=== PATIENT | female | born 1990 | race Caucasian/White ===

== ENCOUNTER → 2023-03-24 14:54 | Outpatient (REF) | payer OTHER, SELFPAY | LOC: PNTC 14:54 | PROVIDERS: ATTENDING PHYSICIAN Obstetrics & Gynecology | DX: Z36.0 Encounter for antenatal screening for chromosomal anomalies (principal); Z36.82 Encounter for antenatal screening for nuchal translucency | CPT/HCPCS: 36415; 76801; 76802; 76813; 76814 ==

== ENCOUNTER → 2023-04-17 15:02 | Outpatient (REF) | payer OTHER, SELFPAY | LOC: PNTC 15:02 | PROVIDERS: ATTENDING PHYSICIAN Obstetrics & Gynecology | DX: O99.210 Obesity complicating pregnancy, unspecified trimester (principal) | CPT/HCPCS: 76805; 76810 ==

== ENCOUNTER → 2023-05-12 15:24 | Outpatient (REF) | payer OTHER, SELFPAY | LOC: PNTC 15:24 | PROVIDERS: ATTENDING PHYSICIAN Obstetrics & Gynecology | DX: O99.210 Obesity complicating pregnancy, unspecified trimester (principal) | CPT/HCPCS: 76811; 76812 ==

== ENCOUNTER → 2023-06-23 17:06 | Outpatient (REF) | payer BC, SELFPAY | LOC: PNTC 17:06 | PROVIDERS: ATTENDING PHYSICIAN Obstetrics & Gynecology | DX: O99.210 Obesity complicating pregnancy, unspecified trimester (principal) | CPT/HCPCS: 76816 ==

== ENCOUNTER → 2023-07-21 08:45 | Outpatient (REF) | payer BC, SELFPAY | LOC: REG 08:45 | PROVIDERS: ATTENDING PHYSICIAN Obstetrics & Gynecology | DX: Z34.03 Encounter for supervision of normal first pregnancy, third trimester (principal) | CPT/HCPCS: 36415; 86850; 86900; 86901; J2790 ==

== ENCOUNTER → 2023-08-04 15:42 | Outpatient (REF) | payer BC, SELFPAY | LOC: PNTC 15:42 | PROVIDERS: ATTENDING PHYSICIAN Obstetrics & Gynecology | DX: O99.210 Obesity complicating pregnancy, unspecified trimester (principal); O30.049 Twin pregnancy, dichorionic/diamniotic, unspecified trimester | CPT/HCPCS: 59025; 76801; 76802 ==

== ENCOUNTER → 2023-08-11 14:52 | Outpatient (REF) | payer BC, SELFPAY | LOC: PNTC 14:52 | PROVIDERS: ATTENDING PHYSICIAN Obstetrics & Gynecology | DX: O30.049 Twin pregnancy, dichorionic/diamniotic, unspecified trimester (principal); O99.210 Obesity complicating pregnancy, unspecified trimester | CPT/HCPCS: 76815 ==

== ENCOUNTER → 2023-08-18 15:36 | Outpatient (REF) | payer BC, SELFPAY | LOC: PNTC 15:36 | PROVIDERS: ATTENDING PHYSICIAN Obstetrics & Gynecology | DX: O99.210 Obesity complicating pregnancy, unspecified trimester (principal); O30.049 Twin pregnancy, dichorionic/diamniotic, unspecified trimester | CPT/HCPCS: 59025 ==

== ENCOUNTER 2023-08-22 16:58 | Observation (INO) | payer BC, SELFPAY ==
[2023-08-22 17:02] VITALS: BP 130/92; BMI 34.2
[2023-08-22 17:20] LABS: Hematocrit 30.8 % (37.0-47.0); Hemoglobin 10.2 g/dL (12.0-16.0); Mean Corp Hgb Conc. 33.1 g/dL (33.0-37.0); Mean Corpuscular Hgb 28.3 pg (27.0-31.0); Mean Corpuscular Volume 85.3 fL (81.0-99.0); Mean Platelet Volume 11.9 fL (7.4-10.4); Platelet Count 325 10^3/uL (130-400); Red Blood Cell Count 3.61 10^6/uL (4.20-5.40); Red Cell Dist. Width 13.4 % (11.5-14.5); White Blood Cell Count 10.5 10^3/uL (4.8-10.8)
[2023-08-22 17:34] LABS: ALT (SGPT) 15 U/L (0-35); AST (SGOT) 25 U/L (14-36); Albumin 3.7 g/dl (3.5-5.0); Alkaline Phosphatase 266 U/L (38-126); Blood Urea Nitrogen 6 mg/dl (7-17); Calcium 9.6 mg/dl (8.4-10.2); Carbon Dioxide 22 mmol/L (22-30); Chloride 104 mmol/L (98-107); Estimated Creatinine Clearance > 125 ml/min; Glucose 78 mg/dl (70-99); Potassium 4.6 mmol/L (3.5-5.1); Sodium 133 mmol/L (135-145); Total Bilirubin 0.3 mg/dl (0.2-1.3); Total Protein 6.6 g/dl (6.3-8.2); eGFR > 60.00
[2023-08-22 18:06] LABS: Urine Albumin Trace (Neg - Trace); Urine Bilirubin Negative (Negative); Urine Character Clear (Clear); Urine Color Yellow; Urine Glucose Negative (Negative); Urine Ketone Negative (Negative); Urine Leukocyte Negative (Negative); Urine Nitrite Negative (Negative); Urine Occult Blood Negative (Negative); Urine Urobilinogen Negative (Neg - 1+)
[2023-08-22 18:21] LABS: Protein/creatinine Ratio 1.1; Urine Protein 28 mg/dl
== END 2023-08-22 18:40 | disposition home or self-care (01) ==
LOC: LDRP 16:58
PROVIDERS: Obstetrics & Gynecology; ADMITTING PHYSICIAN Obstetrics & Gynecology
DX: O36.8130 Decreased fetal movements, third trimester, not applicable or unspecified (principal); Z3A.35 35 weeks gestation of pregnancy; K59.00 Constipation, unspecified
CPT/HCPCS: 80053; 81003; 82570; 84156; 85027; G0378

== ENCOUNTER → 2023-08-25 15:37 | Outpatient (REF) | payer BC, SELFPAY | LOC: PNTC 15:37 | PROVIDERS: ATTENDING PHYSICIAN Obstetrics & Gynecology | DX: O99.210 Obesity complicating pregnancy, unspecified trimester (principal); O30.049 Twin pregnancy, dichorionic/diamniotic, unspecified trimester | CPT/HCPCS: 59025; 76815 ==

== ENCOUNTER → 2023-09-01 15:55 | Outpatient (REF) | payer BC, SELFPAY | LOC: PNTC 15:55 | PROVIDERS: ATTENDING PHYSICIAN Obstetrics & Gynecology | DX: O99.210 Obesity complicating pregnancy, unspecified trimester (principal); O30.049 Twin pregnancy, dichorionic/diamniotic, unspecified trimester | CPT/HCPCS: 59025; 76816; 86850; 86870; 86900; 86901 ==

== ENCOUNTER → 2023-09-08 15:54 | Outpatient (REF) | payer BC, SELFPAY | LOC: PNTC 15:54 | PROVIDERS: ATTENDING PHYSICIAN Obstetrics & Gynecology | DX: O30.049 Twin pregnancy, dichorionic/diamniotic, unspecified trimester (principal); O99.210 Obesity complicating pregnancy, unspecified trimester | CPT/HCPCS: 59025 ==

== ENCOUNTER 2023-09-16 04:55 | Observation (INO) | payer BC, SELFPAY ==
[2023-09-16 05:23] VITALS: BP 124/87; BMI 35.0
== END 2023-09-16 07:15 | disposition home or self-care (01) ==
LOC: LDRP 04:55
PROVIDERS: ADMITTING PHYSICIAN Obstetrics & Gynecology; FAMILY PHYSICIAN Family Medicine
DX: R10.32 Left lower quadrant pain (principal); R10.11 Right upper quadrant pain; O47.1 False labor at or after 37 completed weeks of gestation; Z3A.38 38 weeks gestation of pregnancy
CPT/HCPCS: 36415; 59025; 76815; G0378

== ENCOUNTER 2023-09-18 05:39 | Inpatient (IN) | payer BC, SELFPAY ==
[2023-09-18 05:53] VITALS: BMI 34.9
[2023-09-18 05:54] VITALS: BP 116/70
[2023-09-18 06:04] LABS: Hematocrit 28.5 % (37.0-47.0); Hemoglobin 9.4 g/dL (12.0-16.0); Mean Corpuscular Hgb 26.3 pg (27.0-31.0); Mean Corpuscular Volume 79.6 fL (81.0-99.0); Mean Platelet Volume 11.9 fL (7.4-10.4); Platelet Count 378 10^3/uL (130-400); Red Blood Cell Count 3.58 10^6/uL (4.20-5.40); Red Cell Dist. Width 14.9 % (11.5-14.5); White Blood Cell Count 11.1 10^3/uL (4.8-10.8)
[2023-09-18] MEDS: TYLENOL 1000 MG PO (07:04)
[2023-09-18] MEDS: LR 1000 IV (07:06)
[2023-09-18] MEDS: BICITRA 30 ML PO (07:23)
[2023-09-18] MEDS: ANCEF 10 IV (07:23)
[2023-09-18] MEDS: TORADOL 15 MG IV ×3 (11:02→23:36)
[2023-09-18] MEDS: REGLAN 10 MG IV (16:00)
[2023-09-19] VITALS (7 sets, daily range): BP systolic 102–139; BP diastolic 65–75
[2023-09-19 05:45] LABS: Hematocrit 22.1 % (37.0-47.0); Hemoglobin 7.2 g/dL (12.0-16.0); Mean Corp Hgb Conc. 32.6 g/dL (33.0-37.0); Mean Corpuscular Hgb 27.1 pg (27.0-31.0); Mean Corpuscular Volume 83.1 fL (81.0-99.0); Mean Platelet Volume 12.1 fL (7.4-10.4); Platelet Count 289 10^3/uL (130-400); Red Blood Cell Count 2.66 10^6/uL (4.20-5.40); Red Cell Dist. Width 14.9 % (11.5-14.5); White Blood Cell Count 13.7 10^3/uL (4.8-10.8)
[2023-09-19] MEDS: TORADOL IV (06:30)
--- NOTE | 2023-09-19 07:56 | W.PN.ANS.POP ---
Anesthesia Post Operative
- Anesthesia Post Op Note
Vital Signs Stable-See Nursing Note: Yes
Airway Patent: Yes
Adequate Pain Control: Yes
Change in Mental Status: No
Current Postoperative Nausea & Vomiting: No
Anesthesia Complications: No
General Anesthetic Recall: No
Unplanned Admission: No
Post Op Hydration Adequate: Yes
[2023-09-19] MEDS: PRENATAL PLUS 1 TABLET PO (08:32)
[2023-09-19] MEDS: TUMS 2 TABLET PO ×2 (08:32→20:17)
[2023-09-19] MEDS: FEOSOL 325 MG PO ×2 (08:32→20:19)
[2023-09-19] MEDS: MOTRIN 600 MG PO ×2 (10:30→20:18)
[2023-09-19] MEDS: TYLENOL 650 MG PO ×2 (10:30→20:18)
[2023-09-19 14:47] LABS: Syphilis/T. pallidum Ab Reflex Negative (Negative)
[2023-09-19] MEDS: SENOKOT-S 1 TABLET PO (20:18)
[2023-09-20] MEDS: MOTRIN 600 MG PO ×4 (04:26→22:24)
[2023-09-20] MEDS: TYLENOL 650 MG PO ×4 (04:26→22:24)
[2023-09-20] MEDS: PRENATAL PLUS 1 TABLET PO (09:23)
[2023-09-20] MEDS: FEOSOL 325 MG PO ×2 (09:23→22:24)
[2023-09-20] MEDS: MYLICON 80 MG PO (12:55)
[2023-09-20] MEDS: SENOKOT-S 1 TABLET PO (12:55)
[2023-09-20] MEDS: TUMS 2 TABLET PO (16:20)
[2023-09-21] MEDS: TYLENOL 650 MG PO ×3 (04:25→20:55)
[2023-09-21] MEDS: MOTRIN 600 MG PO ×3 (04:25→20:55)
[2023-09-21 06:41] LABS: Hematocrit 24.3 % (37.0-47.0); Mean Corp Hgb Conc. 32.9 g/dL (33.0-37.0); Mean Corpuscular Hgb 27.4 pg (27.0-31.0); Mean Corpuscular Volume 83.2 fL (81.0-99.0); Mean Platelet Volume 10.5 fL (7.4-10.4); Platelet Count 368 10^3/uL (130-400); Red Blood Cell Count 2.92 10^6/uL (4.20-5.40); Red Cell Dist. Width 15.5 % (11.5-14.5); White Blood Cell Count 10.2 10^3/uL (4.8-10.8)
[2023-09-21] MEDS: FEOSOL 325 MG PO (07:57)
[2023-09-21] MEDS: PRENATAL PLUS 1 TABLET PO (07:57)
--- NOTE | 2023-09-21 08:39 | W.DS.TRANS ---
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
-
Discharge Instructions:
Discharge Diagnosis/Procedures section
Instructions:
Stand-Alone Forms: LDRP Delivery
Changes to Home Medications: No
Discharge Medications:
DC Medications w/original date entered in [employer]
aspirin 81 mg tablet 81 mg PO DAILY Blood Clot Prevention/Tx 08/22/23
polyethylene glycol 3350 17 gram oral powder packet (Miralax) 17 g PO DAILY Constipation 08/22/23
prenat.vits,johnnie,gjz-jwam-qqzby 1 tab PO DAILY Supplement 08/22/23
sennosides 8.6 mg tablet (Senokot) 8.6 mg PO DAILY Constipation 08/22/23
acetaminophen 325 mg tablet 650 mg (2 x 325 mg) PO Q4HPRN PRN mild pain #0 tabs 09/20/23
ferrous sulfate 325 mg (65 mg iron) tablet (FeroSul) 325 mg PO BID #0 tabs 09/20/23
ibuprofen 600 mg tablet 600 mg PO Q6HPRN PRN pain or cramps #40 tabs 09/20/23
sennosides 8.6 mg-docusate sodium 50 mg tablet 1 tab PO DAILYPRN PRN constipation #0 tabs 09/20/23
simethicone 80 mg chewable tablet 80 mg PO TIDPRN PRN flatulence #0 tabs 09/20/23
Home Medication Changes
Pending Results: Yes
Additional Pending Results:
Placenta pathology
Total time spent discharging patient (in min): 20
[2023-09-21] MEDS: SENOKOT-S 1 TABLET PO (11:33)
[2023-09-21] MEDS: MYLICON 80 MG PO (14:43)
[2023-09-21] MEDS: FEOSOL PO (20:05)
[2023-09-22] MEDS: MYLICON 80 MG PO ×2 (00:55→09:11)
[2023-09-22] MEDS: MOTRIN 600 MG PO ×2 (04:27→10:43)
[2023-09-22] MEDS: TYLENOL 650 MG PO ×2 (04:28→10:43)
[2023-09-22] MEDS: SENOKOT-S 1 TABLET PO (09:11)
[2023-09-22] MEDS: PRENATAL PLUS 1 TABLET PO (09:11)
[2023-09-22] MEDS: FEOSOL PO (09:12)
== END 2023-09-22 14:08 | disposition home or self-care (01) | DRG 788 ==
LOC: LDRP 05:39
PROVIDERS: Obstetrics & Gynecology; ADMITTING PHYSICIAN Obstetrics & Gynecology
PROC: 10D00Z1 Extraction of Products of Conception, Low, Open Approach (ICD-10-PCS; 2023-09-18)
DX: O30.043 Twin pregnancy, dichorionic/diamniotic, third trimester (principal); O32.0XX2 Maternal care for unstable lie, fetus 2; Z3A.38 38 weeks gestation of pregnancy; Z37.2 Twins, both liveborn; O26.893 Other specified pregnancy related conditions, third trimester; Z67.11 Type A blood, Rh negative; D50.0 Iron deficiency anemia secondary to blood loss (chronic); O90.81 Anemia of the puerperium
CPT/HCPCS: 88307; 85027; 86780; 86850; 86900; 86901; 86920; P9016

== ENCOUNTER 2024-01-25 21:28 | Emergency (ER) | payer BC, SELFPAY ==
[2024-01-25 21:31] VITALS: BP 131/82
[2024-01-25 22:02] LABS: HCG, Serum Qualitative Screen Negative
[2024-01-25 22:04] LABS: % Basophils 0.5 % (0-2); % Eosinophils 1.8 % (0-6); % Immature Granulocytes 0.2 % (0-0.5); % Lymphocytes 31.4 % (20.5-51.1); % Monocytes 7.5 % (1.7-9.3); % Neutrophils 58.6 % (42.2-75.2); Absolute Eosinophils 0.1 10^3/uL (0-0.7); Absolute Lymphocytes 2.1 10^3/uL (1.2-3.4); Absolute Monocytes 0.5 10^3/uL (0.1-0.6); Absolute Neutrophils 3.9 10^3/uL (1.4-6.5); Hematocrit 36.9 % (37.0-47.0); Mean Corp Hgb Conc. 32.5 g/dL (33.0-37.0); Mean Corpuscular Hgb 28.6 pg (27.0-31.0); Mean Corpuscular Volume 88.1 fL (81.0-99.0); Mean Platelet Volume 10.7 fL (7.4-10.4); Nucleated Red Blood Cells % 0 %; Platelet Count 339 10^3/uL (130-400); Red Blood Cell Count 4.19 10^6/uL (4.20-5.40); Red Cell Dist. Width 13.2 % (11.5-14.5); White Blood Cell Count 6.6 10^3/uL (4.8-10.8)
[2024-01-25 22:05] LABS: ALT (SGPT) 30 U/L (0-35); AST (SGOT) 25 U/L (14-36); Albumin 4.7 g/dl (3.5-5.0); Alkaline Phosphatase 87 U/L (38-126); Blood Urea Nitrogen 11 mg/dl (7-17); Calcium 9.6 mg/dl (8.4-10.2); Carbon Dioxide 29 mmol/L (22-30); Chloride 101 mmol/L (98-107); Glucose 111 mg/dl (70-99); Lipase 105 U/L (23-300); Potassium 3.8 mmol/L (3.5-5.1); Sodium 139 mmol/L (135-145); Total Bilirubin 0.3 mg/dl (0.2-1.3); Total Protein 7.5 g/dl (6.3-8.2); eGFR > 60.00
[2024-01-25 22:15] VITALS: BP 130/77
--- NOTE | 2024-01-25 22:20 | ED.GENMED ---
History of Present Illness
<STUART Santacruz - Last Filed: 01/25/24 22:32>
General
Chief Complaint: Abdominal Pain
Source: patient
Time Seen by Provider: 01/25/24 22:06
Nursing documentation reviewed up to this point in time: agreed with
History of Present Illness
History of Present Illness:
Pt is a 33 yo F who presents with epigastric abdominal pain that began after dinner tonight. Pt states that the pain is located in the epigastric abdominal region and that it radiates to her back. She describes it as sharp and 9/10. She states that
she has had this pain previously and that it has never been this bad before. She states the last time she had this pain was on Friday. She states that she took 2 Tums at home and denies taking OTC pain medication. Pt admits to having N/V/D. Pt
states that she vomited after the pain started at home and that she vomited all of her dinner and in the waiting room of the ED vomited bile. Pt denies fever, chills, shortness of breath, headache, bloating.
Pt reports that she is 4 months post- from having twins via . She reports that she had to receive blood after the .
Review of Systems
<STUART Santacruz - Last Filed: 01/25/24 22:32>
Review of Systems
Allergies reviewed?: Yes
Constitutional: Reports no symptoms
EENT: Reports no symptoms
Respiratory: Reports no symptoms
Cardiac: Reports no symptoms
ABD/GI: Reports abdominal pain, nausea, vomiting and diarrhea
: Reports no symptoms
Skin: Reports no symptoms
Neurological: Reports no symptoms
Phy Exam
<STUART Santacruz - Last Filed: 01/25/24 22:32>
General Physical Exam
General Presentation: severe distress
General age: appears stated age
General Skin: warm
General Habitus: normal
General Mental: alert
General Hydration: appears well hydrated
Cardiovascular Exam
Cardiovascular Exam: regular rate/rhythm
Pulmonary Exam
Pulmonary Exam: lungs clear
Gastrointestinal Exam
Gastrointestinal Exam: normal bowel sounds, soft and non distended
Palpation: right upper quadrant: Moderate tenderness and generalized: Severe tenderness (epigastric region)
Course
<STUART Santacruz - Last Filed: 01/25/24 22:32>
Orders/Labs/Results
Orders:
Orders
01/25/24 21:29
EKG [Electrocardiogram (*1)] Stat
Reason for Study: Chest Pain
01/25/24 21:30
EKG- Treatment ONCE
01/25/24 21:36
Test Result ONCE
01/25/24 21:44
Complete Blood Count/With Diff Urgent
Comprehensive Metabolic Panel Urgent
HCG, Serum Qualitative Screen Urgent
Lipase Urgent
01/25/24 22:22
US Abdomen Complete/Upper Urgent
Comment:
Reason For Exam: epigastric/RUQ pain
01/25/24 22:41
Morphine Sulfate 4 mg IV NOW STA
Ondansetron Injectable [Zofran] 4 mg IV NOW STA
01/26/24 00:40
Ketorolac [Toradol] 15 mg IV NOW STA
Abnormal Lab Results
01/25/24
21:44
RBC 4.19 L 10^6/uL
(4.20-5.40)
Hct 36.9 L %
(37.0-47.0)
MCHC 32.5 L g/dL
(33.0-37.0)
MPV 10.7 H fL
(7.4-10.4)
Glucose 111 H mg/dl
(70-99)
01/25/24 21:44
01/25/24 21:44
Vital Signs
Initial and Last Documented VS:
Initial Vital Signs
Temp Pulse Resp BP Pulse Ox
97.4 F 78 18 131/82 98
01/25/24 21:31 01/25/24 21:31 01/25/24 21:31 01/25/24 21:31 01/25/24 21:31
Last Documented Vital Signs
Temp Pulse Resp BP Pulse Ox
97.4 F 67 18 118/78 97
01/25/24 21:31 01/25/24 22:15 01/25/24 21:31 01/26/24 00:10 01/26/24 00:15
<Alex Herndon, DO - Last Filed: 01/26/24 01:25>
Orders/Labs/Results
Orders:
Orders
01/25/24 21:29
EKG [Electrocardiogram (*1)] Stat
Reason for Study: Chest Pain
01/25/24 21:30
EKG- Treatment ONCE
01/25/24 21:36
Test Result ONCE
01/25/24 21:44
Complete Blood Count/With Diff Urgent
Comprehensive Metabolic Panel Urgent
HCG, Serum Qualitative Screen Urgent
Lipase Urgent
01/25/24 22:22
US Abdomen Complete/Upper Urgent
Comment:
Reason For Exam: epigastric/RUQ pain
01/25/24 22:41
Morphine Sulfate 4 mg IV NOW STA
Ondansetron Injectable [Zofran] 4 mg IV NOW STA
01/26/24 00:40
Ketorolac [Toradol] 15 mg IV NOW STA
Abnormal Lab Results
01/25/24
21:44
RBC 4.19 L 10^6/uL
(4.20-5.40)
Hct 36.9 L %
(37.0-47.0)
MCHC 32.5 L g/dL
(33.0-37.0)
MPV 10.7 H fL
(7.4-10.4)
Glucose 111 H mg/dl
(70-99)
01/25/24 21:44
01/25/24 21:44
Vital Signs
Initial and Last Documented VS:
Initial Vital Signs
Temp Pulse Resp BP Pulse Ox
97.4 F 78 18 131/82 98
01/25/24 21:31 01/25/24 21:31 01/25/24 21:31 01/25/24 21:31 01/25/24 21:31
Last Documented Vital Signs
Temp Pulse Resp BP Pulse Ox
97.4 F 67 18 118/78 97
01/25/24 21:31 01/25/24 22:15 01/25/24 21:31 01/26/24 00:10 01/26/24 00:15
<STUART Santacruz - Last Filed: 01/25/24 22:32>
MDM/Problems Addressed
Differential Diagnosis Includes:
Cholecystitis, cholelithiasis, acute pancreatitis
<STUART Santacruz - Last Filed: 01/25/24 22:32>
*Critical Care Note
Total Time (30-74mins, 75-104mins- exclusive of procedures): Not Applicable
<Alex Herndon DO - Last Filed: 01/26/24 01:25>
Update Note
Update Note:
Patient still complaining of some pain. I did offer her admission to the hospital but at this point she is refusing. She wishes to be discharged home.
ED Attending Note
<STUART Santacruz - Last Filed: 01/25/24 22:32>
-
Portions of this chart may have been created with voice recognition software.� Occasional wrong word or��sound alike� substitutions may have occurred due to the inherent limitations of voice recognition software.
<Alex Herndon, DO - Last Filed: 01/26/24 01:25>
ED Attending Note
Patient seen and examined by attending physician: Yes
I performed the substantive portion of visit, reviewed & personally made and approve the management plan that is documented in note by myself or BRANDI.: Yes
ED Attending Note:
Pleasant 33-year-old female that presents with right upper quadrant abdominal pain. She states that the pain began after eating dinner tonight. It is accompanied by nausea. She reports it radiates to her right back. At home she took 2 Tums
without much relief. Patient states that the nausea and vomiting has been increasing steadily. Patient denies fever, chills, chest pain, or shortness of breath. Patient states that
Discharge Plan
Departure
Patient Disposition: Home (Routine Discharge)
Date of Disposition: 01/26/24
Time of Disposition: 01:22
Patient with high blood pressure during this ER visit?: Yes
Condition: Good
Discharge Problem:
Biliary colic
Instructions: Gallstones (DC), Abdominal Pain
Prescriptions:
New
diclofenac sodium 75 mg tablet,delayed release (DR/EC)
75 mg PO BID Qty: 10 0RF
No Action
sennosides [Senokot] 8.6 mg Tablet
8.6 mg PO DAILY
polyethylene glycol 3350 [Miralax] 17 gram Powder In Packet
17 g PO DAILY
aspirin 81 mg Tablet
81 mg PO DAILY
prenat.vits,johnnie,tjj-iupj-eddlw Tablet
1 tab PO DAILY
acetaminophen 325 mg Tablet
650 mg PO Q4HPRN PRN (Reason: mild pain) Qty: 0 0RF
sennosides-docusate sodium 8.6-50 mg Tablet
1 tab PO DAILYPRN PRN (Reason: constipation) Qty: 0 0RF
ferrous sulfate [FeroSul] 325 mg (65 mg iron) Tablet
325 mg PO BID Qty: 0 0RF
ibuprofen 600 mg Tablet
600 mg PO Q6HPRN PRN (Reason: pain or cramps) Qty: 40 0RF
simethicone 80 mg Tablet,Chewable
80 mg PO TIDPRN PRN (Reason: flatulence) Qty: 0 0RF
Referrals:
Odette Zimmerman MD [Family Provider] -
Alex Krueger MD [Active] - Call in 1-3 days for appt
Activity Restrictions/Additional Instructions:
Please continue to take Tylenol as directed. Diclofenac has been prescribed which is similar to ibuprofen so please do not take any other NSAIDs such as ibuprofen, Motrin, Aleve etc. with the diclofenac.
It was a pleasure meeting you and taking part in your care. We hope for your continued healing and wellness.
Please read discharge instructions in their entirety. However, they are for general education and may not describe your exact diagnosis at discharge. Information on your ER visit and medical conditions were discussed with you along with appropriate
follow up information...
If indicated, please take your medications as instructed and indicated on discharge paperwork.
Please schedule a follow up appointment as directed. Call to schedule an appointment
Please return to the emergency department with ANY change in, persisting, or worsening of symptoms. If any of your symptoms do not improve, or persist, or become more severe within 6-12 hours, please return to the emergency department for further
care.
Please return to the emergency department if you develop a headache, neck pain/stiffness, fever greater than 100.4F, chest pain, shortness of breath, persistent nausea, vomiting, slurred speech, difficulty walking, numbness/tingling, weakness, signs
of infection or any other symptoms that are worrisome to you.
If you have any questions or concerns please do not hesitate to call the Hospital at or E-mail me directly at [email or web address]
Interventions
Interventions:
*Risk Screen - Suicide Last Done: 01/25/24 21:31
*General Assessment Last Done: 01/25/24 21:31
*Neglect/Abuse Screening Last Done: 01/25/24 21:31
ED- Fall Risk Assessment Last Done: 01/25/24 22:27
[facility] Assessment Last Done: 01/25/24 22:27
Discharge Date and Time
Print Language: [id number]
[2024-01-25] MEDS: ZOFRAN 4 MG IV (22:46)
[2024-01-25] MEDS: MORPHINE SULFATE 4 MG IV (22:46)
[2024-01-25 23:00] VITALS: BP 121/76
[2024-01-26 00:10] VITALS: BP 118/78
[2024-01-26] MEDS: TORADOL 15 MG IV (00:47)
[2024-01-26 01:00] VITALS: BP 138/75
== END 2024-01-26 01:46 | disposition home or self-care (01) ==
LOC: EMR 21:28
PROVIDERS: Student in an Organized Health Care Education/Training Program; EMERGENCY PHYSICIAN Student in an Organized Health Care Education/Training Program; FAMILY PHYSICIAN Family Medicine
DX: K80.70 Calculus of gallbladder and bile duct without cholecystitis without obstruction (principal)
CPT/HCPCS: 96374; 96375; 99284; 76700; 80053; 83690; 84703; 85025; 93005

== ENCOUNTER 2024-02-07 19:09 | Day surgery (SDC) | payer BC, SELFPAY ==
[2024-02-07] VITALS (13 sets, daily range): BP systolic 108–130; BP diastolic 63–84; BMI 30.8; BMI 30.6
[2024-02-07 11:19] LABS: Urine Albumin Trace (Neg - Trace); Urine Bilirubin Negative (Negative); Urine Character Clear (Clear); Urine Color Yellow; Urine Glucose Negative (Negative); Urine Ketone Negative (Negative); Urine Leukocyte Trace (Negative); Urine Nitrite Negative (Negative); Urine Occult Blood Negative (Negative); Urine Urobilinogen Negative (Neg - 1+)
[2024-02-07 11:22] LABS: % Basophils 0.4 % (0-2); % Eosinophils 0.4 % (0-6); % Immature Granulocytes 0.4 % (0-0.5); % Lymphocytes 15.7 % (20.5-51.1); % Monocytes 4.5 % (1.7-9.3); % Neutrophils 78.6 % (42.2-75.2); Absolute Lymphocytes 1.5 10^3/uL (1.2-3.4); Absolute Monocytes 0.4 10^3/uL (0.1-0.6); Absolute Neutrophils 7.6 10^3/uL (1.4-6.5); Hematocrit 36.9 % (37.0-47.0); Hemoglobin 12.4 g/dL (12.0-16.0); Mean Corp Hgb Conc. 33.6 g/dL (33.0-37.0); Mean Corpuscular Hgb 29.2 pg (27.0-31.0); Mean Platelet Volume 10.5 fL (7.4-10.4); Nucleated Red Blood Cells % 0 %; Platelet Count 318 10^3/uL (130-400); Red Blood Cell Count 4.24 10^6/uL (4.20-5.40); Red Cell Dist. Width 13.5 % (11.5-14.5); White Blood Cell Count 9.7 10^3/uL (4.8-10.8)
[2024-02-07] MEDS: ZOFRAN 4 MG IV ×2 (11:26→20:09)
[2024-02-07] MEDS: NSS 1000 IV ×2 (11:29→19:55)
[2024-02-07 11:34] LABS: ALT (SGPT) 21 U/L (0-35); AST (SGOT) 19 U/L (14-36); Albumin 4.8 g/dl (3.5-5.0); Alkaline Phosphatase 79 U/L (38-126); Blood Urea Nitrogen 19 mg/dl (7-17); Calcium 9.9 mg/dl (8.4-10.2); Carbon Dioxide 21 mmol/L (22-30); Chloride 103 mmol/L (98-107); Estimated Creatinine Clearance > 125 ml/min; Glucose 120 mg/dl (70-99); Lipase 92 U/L (23-300); Potassium 4.2 mmol/L (3.5-5.1); Sodium 137 mmol/L (135-145); Total Bilirubin 0.2 mg/dl (0.2-1.3); Total Protein 7.7 g/dl (6.3-8.2); eGFR > 60.00
[2024-02-07 11:44] LABS: Urine Squamous Cell >30 /LPF (Few)
[2024-02-07 11:45] LABS: Urine Mucus Moderate; Urine Red Blood Cell 0-2 /HPF (0-2)
[2024-02-07 11:46] LABS: Urine Bacteria Few (Negative); Urine White Cell 0-2 /HPF (0-5)
--- NOTE | 2024-02-07 13:13 | ED.GENMED ---
History of Present Illness
<Risa Singh PA-C - Last Filed: 02/07/24 19:16>
General
Chief Complaint: Abdominal Pain
Source: patient
Exam Limitations: none
Time Seen by Provider: 02/07/24 12:59
Nursing documentation reviewed up to this point in time: agreed with
History of Present Illness
History of Present Illness:
Patient is a 33-year-old female with known history of gallstones presenting to the emergency department for evaluation of upper abdominal pain. Patient states symptoms started this morning around 6 AM while she was in bed. She describes a sharp
stabbing pain in her upper abdomen with radiation into her mid back. Symptoms worsened around 9 AM prompting her visit to the emergency department. Patient does report associated nausea and vomiting this morning. Patient denies any diarrhea or
urinary symptoms. Patient denies any shortness of breath. Patient denies any fever.
Patient was seen in the emergency department with similar symptoms few weeks ago and diagnosed with gallstones. Symptoms are very similar to her last visit. She is scheduled to have her gallbladder removed with Dr. Vinson on 03/07/24.
Review of Systems
<Risa Singh PA-C - Last Filed: 02/07/24 19:16>
Review of Systems
Allergies reviewed?: Yes
All Other Systems: ROS reviewed and negative except as documented in HPI and ROS
Phy Exam
<Risa Singh PA-C - Last Filed: 02/07/24 19:16>
Physical Exam
Physical Exam:
Vitals: Patient's vital signs are stable. Afebrile
General: Patient is uncomfortable due to pain. Nontoxic appearing
Skin: Warm and dry, no rashes or lesions
Head: Normocephalic, atraumatic
Eyes: Sclera nonicteric. EOMs intact. No nystagmus.
Throat: Protecting airway
Neck: Normal ROM, no cervical spine tenderness, no meningismus
Cardiac: Regular rate and rhythm, no murmurs.
Pulm: Normal respiratory effort, no wheezes, rales, rhonchi heard on exam.
Abdomen: Abdomen soft. Moderate epigastric and right upper quadrant tenderness. Positive Salgado sign. No CVA tenderness. No rash
Extremities: No evidence of cyanosis or edema. Palpable DP pulses
Neuro: AAOx3. Grossly intact.
Psychiatric: Normal affect.
Course
<Risa Singh PA-C - Last Filed: 02/07/24 19:16>
Orders/Labs/Results
Orders:
Orders
02/07/24 11:01
EKG [Electrocardiogram (*1)] Urgent
Reason for Study: Chest Pain
EKG- Treatment ONCE
02/07/24 11:08
Urinalysis Reflex To Culture Urgent
Date Specimen was Collected: 02/07/24
Time Specimen was Collected: 11:02
Urine Microscopic Reflex Cult Urgent
02/07/24 11:11
Complete Blood Count/With Diff Urgent
Comprehensive Metabolic Panel Urgent
HCG, Serum Qualitative Screen Urgent
Lipase Urgent
02/07/24 11:18
Ondansetron Injectable [Zofran] 4 mg .ROUTE .STK-MED ONE
02/07/24 11:26
Ondansetron Injectable [Zofran] 4 mg IV NOW STA
02/07/24 11:29
0.9% Sodium Chloride 1000 ml [Nss] 1,000 ml IV BOLUS
02/07/24 13:12
Ketorolac [Toradol] 15 mg IV NOW STA
02/07/24 13:14
Add On- LAB Urgent
Tests Added?: serum hcg
US Abdomen Complete/Upper Urgent
Comment: known gallstones
Reason For Exam: epigastric/ RUQ pain
02/07/24 Dinner
Clear Liquid
02/07/24 16:19
Morphine Sulfate 2 mg IV NOW STA
02/07/24 16:21
Piperacillin/Tazo 3.375 Gram [Zosyn] 3.375 gram in 50 ml IV NOW
02/07/24 16:29
SURGICAL CONSULT Urgent
Consulting Provider: Hao Ayala
Was physician already notified: Yes
02/07/24 17:42
Admit Patient As Directed
Co-Sign Provider:
Level of Care: Post Proc/Surg Recovery
Assign to:: Medical/Surgical
Physician / Group: Jamie/General surgery
Diagnosis: Acute calculous cholecystitis
Reason for Overnight Stay: Standard of Care
Code Status As Directed
Resuscitation Status: Full Code
Acetaminophen [Tylenol] 650 mg PO Q4HPRN PRN
HYDROmorphone [Dilaudid] 0.5 mg IV Q2HPRN PRN
HYDROmorphone [Dilaudid] 1 mg IV Q2HPRN PRN
Activity As Directed
Activity Level: Out of Bed-Early Mobility
Anti-embolism (LELE) Hose As Directed
Type: Thigh high
Intake/ Output As Directed
Frequency: Per unit guidelines
Vital Signs As Directed
Frequency: Per unit guidelines
02/07/24 17:43
Pneumatic Compression Sleeves As Directed
Type: Knee high
PRN Pain Medication Management As Directed
May give lesser potent ordered pain med per pt: Yes
preference::
Protocol:: Medication orders for pain may be administered in a
manner that supports deferring to patient preference
when the pt is:
- Requesting an ordered lesser potent pain medication.
Least to most potent pain medications are defined
as: acetaminophen < NSAID < tramadol < opioids
(morphine, oxycodone, hydromorphone).
- Requesting a lesser dose of the same medication IF
ORDERED.
- Requesting a less intrusive route of administration
if both routes are prescribed by the provider (PO <
IV).
Rx Incentive Spirometry [RESP] Routine
Frequency: q1h while awake
# of times per hour: 10
DX Deep Vein Thrombosis Video Routine
02/07/24 17:45
0.9% Sodium Chloride 1000 ml [Nss] 1,000 ml IV 80 mls/hr
02/07/24 22:00
Piperacillin/Tazo 3.375 Gram [Zosyn] 3.375 gram in 50 ml IV Q6H
02/08/24 Breakfast
NPO
Allow oral meds: Yes
Allow clear liquids: No
Abnormal Lab Results
02/07/24 02/07/24
11:08 11:11
Hct 36.9 L %
(37.0-47.0)
MPV 10.5 H fL
(7.4-10.4)
Absolute Neuts (auto) 7.6 H 10^3/uL
(1.4-6.5)
Neutrophils % 78.6 H %
(42.2-75.2)
Lymphocytes % 15.7 L %
(20.5-51.1)
Carbon Dioxide 21 L mmol/L
(22-30)
BUN 19 H mg/dl
(7-17)
Glucose 120 H mg/dl
(70-99)
Leukocyte Esterase Rfl Trace A
(Negative)
Urine Bacteria (Reflex) Few A
(Negative)
02/07/24 11:11
02/07/24 11:11
Vital Signs
Initial and Last Documented VS:
Initial Vital Signs
Temp Pulse Resp BP Pulse Ox
98.0 F 83 20 120/83 99
02/07/24 10:58 02/07/24 10:58 02/07/24 10:58 02/07/24 10:58 02/07/24 10:58
Last Documented Vital Signs
Temp Pulse Resp BP Pulse Ox
98.0 F 83 20 114/70 96
02/07/24 10:58 02/07/24 10:58 02/07/24 10:58 02/07/24 18:00 02/07/24 18:30
<Carmen Wilson MD - Last Filed: 02/07/24 16:21>
Orders/Labs/Results
Orders:
Orders
02/07/24 11:01
EKG [Electrocardiogram (*1)] Urgent
Reason for Study: Chest Pain
EKG- Treatment ONCE
02/07/24 11:08
Urinalysis Reflex To Culture Urgent
Date Specimen was Collected: 02/07/24
Time Specimen was Collected: 11:02
Urine Microscopic Reflex Cult Urgent
02/07/24 11:11
Complete Blood Count/With Diff Urgent
Comprehensive Metabolic Panel Urgent
HCG, Serum Qualitative Screen Urgent
Lipase Urgent
02/07/24 11:18
Ondansetron Injectable [Zofran] 4 mg .ROUTE .STK-MED ONE
02/07/24 11:26
Ondansetron Injectable [Zofran] 4 mg IV NOW STA
02/07/24 11:29
0.9% Sodium Chloride 1000 ml [Nss] 1,000 ml IV BOLUS
02/07/24 13:12
Ketorolac [Toradol] 15 mg IV NOW STA
02/07/24 13:14
Add On- LAB Urgent
Tests Added?: serum hcg
US Abdomen Complete/Upper Urgent
Comment: known gallstones
Reason For Exam: epigastric/ RUQ pain
02/07/24 Dinner
Clear Liquid
02/07/24 16:19
Morphine Sulfate 2 mg IV NOW STA
02/07/24 16:21
Piperacillin/Tazo 3.375 Gram [Zosyn] 3.375 gram in 50 ml IV NOW
02/07/24 16:29
SURGICAL CONSULT Urgent
Consulting Provider: Hao Ayala
Was physician already notified: Yes
02/07/24 17:42
Admit Patient As Directed
Co-Sign Provider:
Level of Care: Post Proc/Surg Recovery
Assign to:: Medical/Surgical
Physician / Group: Jamie/General surgery
Diagnosis: Acute calculous cholecystitis
Reason for Overnight Stay: Standard of Care
Code Status As Directed
Resuscitation Status: Full Code
Acetaminophen [Tylenol] 650 mg PO Q4HPRN PRN
HYDROmorphone [Dilaudid] 0.5 mg IV Q2HPRN PRN
HYDROmorphone [Dilaudid] 1 mg IV Q2HPRN PRN
Activity As Directed
Activity Level: Out of Bed-Early Mobility
Anti-embolism (LELE) Hose As Directed
Type: Thigh high
Intake/ Output As Directed
Frequency: Per unit guidelines
Vital Signs As Directed
Frequency: Per unit guidelines
02/07/24 17:43
Pneumatic Compression Sleeves As Directed
Type: Knee high
PRN Pain Medication Management As Directed
May give lesser potent ordered pain med per pt: Yes
preference::
Protocol:: Medication orders for pain may be administered in a
manner that supports deferring to patient preference
when the pt is:
- Requesting an ordered lesser potent pain medication.
Least to most potent pain medications are defined
as: acetaminophen < NSAID < tramadol < opioids
(morphine, oxycodone, hydromorphone).
- Requesting a lesser dose of the same medication IF
ORDERED.
- Requesting a less intrusive route of administration
if both routes are prescribed by the provider (PO <
IV).
Rx Incentive Spirometry [RESP] Routine
Frequency: q1h while awake
# of times per hour: 10
DX Deep Vein Thrombosis Video Routine
02/07/24 17:45
0.9% Sodium Chloride 1000 ml [Nss] 1,000 ml IV 80 mls/hr
02/07/24 22:00
Piperacillin/Tazo 3.375 Gram [Zosyn] 3.375 gram in 50 ml IV Q6H
02/08/24 Breakfast
NPO
Allow oral meds: Yes
Allow clear liquids: No
Abnormal Lab Results
02/07/24 02/07/24
11:08 11:11
Hct 36.9 L %
(37.0-47.0)
MPV 10.5 H fL
(7.4-10.4)
Absolute Neuts (auto) 7.6 H 10^3/uL
(1.4-6.5)
Neutrophils % 78.6 H %
(42.2-75.2)
Lymphocytes % 15.7 L %
(20.5-51.1)
Carbon Dioxide 21 L mmol/L
(22-30)
BUN 19 H mg/dl
(7-17)
Glucose 120 H mg/dl
(70-99)
Leukocyte Esterase Rfl Trace A
(Negative)
Urine Bacteria (Reflex) Few A
(Negative)
02/07/24 11:11
02/07/24 11:11
Vital Signs
Initial and Last Documented VS:
Initial Vital Signs
Temp Pulse Resp BP Pulse Ox
98.0 F 83 20 120/83 99
02/07/24 10:58 02/07/24 10:58 02/07/24 10:58 02/07/24 10:58 02/07/24 10:58
Last Documented Vital Signs
Temp Pulse Resp BP Pulse Ox
98.0 F 83 20 114/70 96
02/07/24 10:58 02/07/24 10:58 02/07/24 10:58 02/07/24 18:00 02/07/24 18:30
<Risa Singh PA-C - Last Filed: 02/07/24 19:16>
MDM/Problems Addressed
Differential Diagnosis Includes:
Not limited to: Biliary colic, cholecystitis, choledocholithiasis, cholangitis, pancreatitis, GERD, etc.
MDM/Problems Addressed:
33-year-old female with known gallstones presenting with recurrent epigastric/right upper quadrant abdominal pain associated with nausea and vomiting. Very similar to prior biliary colic episodes. No known fever, chest pain, or shortness of
breath. Patient has stable vital signs and is afebrile. On exam�patient is moderately uncomfortable due to pain. Her abdomen is soft with moderate tenderness in epigastric region and right upper quadrant with a positive Salgado sign. Basic labs
were initiated in triage without any clinically significant abnormalities. There is no leukocytosis. No elevation of LFTs or bilirubin. Patient did receive fluids and Zofran prior to my assessment. Will give dose of Toradol. Will obtain
abdominal ultrasound to rule out any signs of acute cholecystitis versus choledocholithiasis. Will closely monitor patient and reassess.
Update 2:15PM: Into reassess patient at bedside. She does have improvement in symptoms following Toradol though still has mild pain in epigastric/mid back. Ultrasound pending.
Chronic conditions affecting care:
Cholelithiasis
Acute Exacerbation and/or Progression of Chronic Illness:
Acute cholecystitis
<Risa Singh PA-C - Last Filed: 02/07/24 19:16>
*Radiology
Radiology exam reviewed: radiology read reviewed (Thickened gallbladder wall and positive sonographic Salgado sign-consistent with acute cholecystitis)
*Pulse Oximetry
Patient hypoxic: no
*EKG
Interpreted by ED Provider?: Yes
EKG Intrepretation Date: 02/07/24
Interpretation: normal
Comparison EKG: no changes
Heart Rate: 71
Rate: normal
Rhythm: sinus
Anthony: normal axis
Interval: normal interval
QRS Pattern: normal QRS
Ischemia: no ischemia
*Manager Of Environmental Services Interpretation
Rate: Manager Of Environmental Services- N/A
*Critical Care Note
Total Time (30-74mins, 75-104mins- exclusive of procedures): Not Applicable
Data Reviewed
Review of Other/Old Records Reveals: Records (Emergency department visit from 01/25/2024-discharged with biliary colic) and Radiology Studies (Abdominal ultrasound from 01/25/2024 which demonstrated cholelithiasis)
Source: previous radiology exam and previous hospital records
<Risa Singh PA-C - Last Filed: 02/07/24 19:16>
Patient Management
Discussion with other providers: Industrial Nurse (General Surgery-Dr. Ayala)
Escalation/DeEscalation of care consider admission/obs:
Admit to general surgery�plan for OR tomorrow
<Risa Singh PA-C - Last Filed: 02/07/24 19:16>
Update Note
Update Note:
Update: Ultrasound report does show cholelithiasis with gallbladder wall thickening and a positive sonographic Salgado sign representing likely acute cholecystitis. Zosyn given in ED. Case was discussed with general surgeon Dr. Ayala who evaluate
patient at bedside. Patient will be admitted to general surgery service and plan for OR tomorrow. Patient accepted to general surgery service in stable condition. Case discussed with attending physician
ED Attending Note
<Risa Singh PA-C - Last Filed: 02/07/24 19:16>
-
Portions of this chart may have been created with voice recognition software.� Occasional wrong word or��sound alike� substitutions may have occurred due to the inherent limitations of voice recognition software.
<Carmen Wilson MD - Last Filed: 02/07/24 16:21>
ED Attending Note
Patient seen and examined by attending physician: Yes
I performed the substantive portion of visit, reviewed & personally made and approve the management plan that is documented in note by myself or BRANDI.: Yes
ED Attending Note:
33-year-old female had crab legs last night, woke this morning with complaints of right sided pain which continues. Pain noted to be in the epigastric area radiating around to the back similar to prior episodes of cholelithiasis. Patient denies
fever, chills, chest pain, shortness of breath. She did have an episode of vomiting which is now resolved. On exam, patient has distinct right upper quadrant tenderness to palpation, generally nontoxic. Ultrasound consistent with cholecystitis.
Nonseptic. Plan is to consult with general surgery would likely plan for surgical removal.
Discharge Plan
Departure
Patient Disposition: Admit
Date of Disposition: 02/07/24
Time of Disposition: 17:10
Presentation/result/management discussed w/ accepting MD/DO: Dr. Ayala
Discharge Problem:
Acute cholecystitis
Prescriptions:
No Action
diclofenac sodium 75 mg tablet,delayed release (/EC)
75 mg PO BID Qty: 10 0RF
docusate sodium 100 mg Capsule
100 mg PO DAILY
guaifenesin [Mucinex] 600 mg Tablet Extended Release 12hr
600 mg PO BIDPRN PRN (Reason: congestion)
Referrals:
Ana López CRNP [Family Provider] -
Discharge Date and Time
Print Language: OMANI
[2024-02-07] MEDS: TORADOL 15 MG IV (13:14)
[2024-02-07 13:39] LABS: HCG, Serum Qualitative Screen Negative
[2024-02-07] MEDS: ZOSYN 50 IV ×2 (16:35→21:25)
[2024-02-07] MEDS: MORPHINE SULFATE 2 MG IV (16:36)
--- NOTE | 2024-02-07 19:26 | HPS.HSE ---
Addendum entered and electronically signed by Hao Ayala MD 02/07/24 19:55:
I saw and examined the patient independently.
The Technical Education Teacher's note was reviewed and I agree with the note, assessment and plan except where noted below.
Comment: This is a 33-year-old female known to the general surgery service and plan for laparoscopic cholecystectomy with Dr. Vinson in the new year however she presents to the hospital with severe right upper quadrant pain that began this morning
similar to her last ED visit. She endorses continued smaller attacks in between her last visit as well. Ultrasound imaging confirms thickened gallbladder wall and positive sonographic Salgado sign. Her exam is similar all concerning for acute
cholecystitis.
Will plan for a laparoscopic cholecystectomy in the OR tomorrow.
N.p.o., IV fluids, IV Zosyn.
Pain control
Risks/Benefits/Alternatives, expected postoperative course and possible complications (bleeding, infection, injury to surrounding structures, acute/chronic pain) discussed at length. Patient wishes to proceed with surgery. All questions answered.
Consent obtained.
I spent 75 minutes in total for the care of this patient today including direct patient care and counseling, reviewing labs, imaging, coordination of care, as well as documentation.
Original Note:
Family Physician
-
Family Physician: KIANA Shrestha
Chief Complaint
-
Abdominal pain
History of Present Illness
33 yo female s/p on 09/18/23 for the of twins with a prior ED visit on 01/25/24 for biliary colic with gallstones but no cholecystitis noted on US at that time. She followed up with Dr. Vinson as an outpatient with surgery planned in
several weeks for laparscopic cholecystectomy but began to have severe RUQ pain early this morning causing her to present to the ER for evaluation. She had associated nausea and vomiting which has currently resolved. She denies bladder or bowel
changes. On exam, she is tender to the RUQ with light palpation.
Medical History
Past Medical History
Past Medical History: Reports None and Other (biliary colic)
Past Surgical History: Reports
Social History
Tobacco: Non-smoker
Alcohol: None
Personal:
Living: With Family
Family History
Family History: Not pertinent
Allergies / Home Medications
Allergies reflects when Allergies were last updated in [employer].
Home Medications with original date entered in [employer]
Allergy/Medication List:
Patient Allergies
Allergy/AdvReac Type Severity Reaction Status Date / Time
lavender (Lavandula Allergy Mild Rash Verified 02/07/24 11:01
angustifolia)
�Medication �Instructions �Recorded �Confirmed �Type
diclofenac sodium 75 mg 75 mg PO BID #10 tabs 01/26/24 02/07/24 Rx
tablet,delayed release
docusate sodium 100 mg capsule 100 mg PO DAILY 02/07/24 02/07/24 History
guaifenesin 600 mg tablet, 600 mg PO BIDPRN PRN congestion 02/07/24 02/07/24 History
extended release 12 hr (Mucinex)
Review of Systems
-
History Source: Patient
A 12 point ROS was completed and negative except as noted: Yes
Physical Exam
Vital Signs
Vital Signs
Temp Pulse Resp BP Pulse Ox
98.0 F 83 20 112/78 97
02/07/24 10:58 02/07/24 10:58 02/07/24 10:58 02/07/24 19:00 02/07/24 19:15
Physical Exam
General: Well Developed and Well Nourished
HEENT: Moist mucous membranes
Respiratory: Non Labored Respirations
GI: Soft, Tender (RUQ) and Distended
Skin: Warm and Dry
Neuro: Awake, Alert and AO x 3
Psych: Calm
Laboratory Results
-
02/07/24 11:11
02/07/24 11:11
Laboratory Results
Total Bilirubin 0.2 mg/dl (0.2-1.3) 02/07/24 11:11
AST 19 U/L (14-36) 02/07/24 11:11
ALT 21 U/L (0-35) 02/07/24 11:11
Alkaline Phosphatase 79 U/L (38-126) 02/07/24 11:11
Lipase 92 U/L (23-300) 02/07/24 11:11
Data Reviewed
-
Ultrasound: Image Personally Visualized and interpreted, Report Reviewed by me, Discussed with Physician, Discussed with Patient and Discussed with Family
Lab Data: Labs Reviewed by me, Discussed with Physician, Discussed with Patient and Discussed with Family
Old Records: Reviewed
Impression/Plan
-
IMPRESSION:
33 yo female with recent on 09/18/23 with prior US demonstrating gallstone with presentation for biliary colic earlier this month and OR planned in mid February presenting with recurrent symptoms and persistent pain. US on this presentation
with +salgado's sign and wall thickening consistent with acute calculous cholecystitis. She is afebrile with stable vital signs. No leukocytosis present and normal LFT's.
PLAN:
Will admit for management and plan laparoscopic cholecystectomy in AM
Clear liquids tonight and NPO for OR tomorrow
Continue IV zosyn which was initiated in the ED
IVF with NSS at 80ml/hr
Analgesics/Antiemetics prn
SCD's for VTE ppx
--- NOTE | 2024-02-07 19:50 | PTCARENOTE ---
Patient arrived to [address] from ED via stretcher. Patient vomiting a great amount of green/brown liquid. Patient assisted into bed. Contacted provider for antiemetic medication. Otherwise patient AAOx3, VSS, pleasant and oriented to room and plan of
care for shift. Assessment on going.
[2024-02-07] MEDS: DILAUDID 0.5 MG IV (21:30)
[2024-02-08] VITALS (17 sets, daily range): BP systolic 109–149; BP diastolic 55–74
[2024-02-08] MEDS: DILAUDID 0.5 MG IV ×2 (01:43→06:38)
[2024-02-08] MEDS: ZOFRAN 4 MG IV ×2 (02:32→12:17)
[2024-02-08] MEDS: ZOSYN 50 IV ×4 (04:17→21:51)
[2024-02-08] MEDS: COLACE PO (08:19)
--- NOTE | 2024-02-08 09:48 | W.SUR.PREOP ---
Pre-Operative Surgical Note
-
I have examined this patient prior to the performance of the scheduled procedure.
The patient's condition is unchanged from the time of the current History and
Physical and the patient is able to undergo the scheduled procedure.
--- NOTE | 2024-02-08 10:47 | CM ---
Reviewed the chart notes. Per notes, plan for laparoscopic cholecystectomy today. Patient resides with spouse in a one story home with a couple of steps to enter. No DME/VN/SNF. Pharmacy of choice is the [facility] continues to
be available to patient/family and is monitoring medical plan for needs at discharge.
Plan: Discharge to home when medically stable. No additional needs identified at this time.
--- NOTE | 2024-02-08 12:04 | W.IMMPOSTOP ---
Surgical Immed Post Op Note
-
Primary Surgeon: Hao Ayala MD
Assisting Surgeon: None
Pre-op Diagnosis: Acute cholecystitis
Post-op Diagnosis: Same
Procedure Performed: Laparoscopic cholecystectomy
Anesthesia Type: General
Specimen / Cultures: Gallbladder and contents
Estimated Blood Loss: 23 cc
Complications: None
Operative Findings: Acutely inflamed distended gallbladder, decompressed with an aspiration needle with evacuation of hydrops. Critical view of safety obtained prior to ligation of the cystic artery and duct. The artery was densely adherent to the
cystic duct. Preoperative blood work normal, no cholangiogram was performed.
POST OP PLAN:
Imaging: None
Labs: Routine AM
Diet: Advance to Regular as tolerated
Analgesia: Tylenol 650mg q6 Francia, Aileen 5mg q6 PRN, Dilaudid 0.5mg q2h PRN
Neuro/vascular checks: q4h
AC/AP: Hold Therapeutic AC, Ok for DVT PPx
Activity: Ad Clover
Wound/Incisions/Drains: Routine
Abx: Will continue while admitted, can stop antibiotics on discharge
Dispo: RNF anticipate discharge home later today versus tomorrow depending on clinical course.
--- NOTE | 2024-02-08 12:06 | OR.RPT ---
Operative Report
Operative Report
Patient Name: Rosalie May
: 1990
Date of Operation: 02/08/2024
Preoperative Diagnosis: Acute cholecystitis
Postoperative Diagnosis: Same
Procedure(s):
Laparoscopic Cholecystectomy
Surgeon(s):
Dr. Ayala
Tool Planner(s):
None
Anesthesia: General
Estimated Blood Loss: 23 cc
Urine Output: None
Drains/Lines/Implants: None
Specimens:
1. Gallbladder and contents
HPI/Surgical Indications:
This is a 33-year-old female who presents with 1 day of right upper quadrant postprandial abdominal pain, in the setting of multiple prior attacks.. Exam, labs and imaging are consistent with acute cholecystitis. Risks/Benefits/Alternatives were
discussed at length, and the patient agreed to proceed with surgery.
Operative Findings: Acutely inflamed distended gallbladder, decompressed with an aspiration needle with evacuation of hydrops. Critical view of safety obtained prior to ligation of the cystic artery and duct. The artery was densely adherent to the
cystic duct. Preoperative blood work normal, no cholangiogram was performed.
Procedure Description:
The patient was brought to the Operating Room and placed in the supine position with one arm tucked. Following uneventful induction of general endotracheal anesthesia, an orogastric tube was placed. The abdomen was prepped and draped in the usual
sterile fashion. A timeout was performed confirming the procedure, consent, and that IV antibiotics were infused and sequential compression devices were confirmed to be on. The abdomen was entered using a left subcostal Veress technique which
required a single pass followed by an 11 mm right upper quadrant Optiview trocar. Pneumoperitoneum to 15 mmHg pressure was obtained without difficulty and we confirmed that no injury had occurred during our entry. The patient was positioned in
reverse Trendelenberg and rotated with the right side up slightly. Three (3) 5mm trocars were then placed along the right subcostal margin. The gallbladder was emptied using a decompressing needle through the fundus of the gallbladder with
evacuation of hydrops before A locking grasping forceps was placed on the fundus of the gallbladder where it was then retracted cephalad and to the right. Using appropriate grasping instruments, the peritoneum overlying the triangle of Calot was
incised and extended superiorly on both the anterior and posterior gallbladder jacobo. The infundibulum was dissected off the cystic plate. The cystic triangle was dissected until a critical view of safety was achieved. A posterior cystic artery
was identified and ligated. The main cystic artery however was scarred onto the cystic duct and could not be dissected off without causing bleeding so no cholangiogram was performed and the duct and artery were taken together between 2 pairs of 5
mm titanium clips. The stump was then reinforced with a 0 PDS suture. After ensuring both the artery and duct were divided, the gallbladder was freed from the liver using electrocautery. There was no spillage of bile or stones. The gallbladder bed
was inspected and excellent hemostasis was obtained. The gallbladder was extracted through the 11 mm trocar site using an endocatch bag. The abdomen was again irrigated and excellent hemostasis was assured. All remaining trocars were then removed
and the pneumoperitoneum was evacuated. The 11 mm trocar site was closed using 0 PDS suture. All trocar sites were closed at the skin level using 4-0 Monocryl followed by Dermabond. Overall, the patient tolerated the procedure well and was taken
to the Recovery Room postoperatively in stable condition.
I was the attending physician and performed the procedure with no assistance. I was present for all portions of the case
Hao Ayala MD
[2024-02-08] MEDS: COMPAZINE 5 MG IV (13:03)
[2024-02-08] MEDS: NSS 1000 IV (13:30)
--- NOTE | 2024-02-08 14:09 | PTCARENOTE ---
received patient from PACU via bed around 1355 in stable condition. Patient sleepy but arousable. 5 abdominal sites with surgical adhesive, intact SEDA. Pain controlled at this time. VS stable. Call ferrari in reach.
[2024-02-08] MEDS: ROXICODONE 5 MG PO (19:28)
[2024-02-08] MEDS: MUCINEX 600 MG PO (21:56)
[2024-02-09] MEDS: NSS 1000 IV (02:25)
[2024-02-09] MEDS: ROXICODONE 5 MG PO ×2 (02:37→08:39)
[2024-02-09 02:51] VITALS: BP 108/65
[2024-02-09] MEDS: ZOSYN 50 IV ×2 (03:34→09:45)
[2024-02-09 07:00] VITALS: BP 118/73
[2024-02-09] MEDS: COLACE 100 MG PO (08:34)
[2024-02-09] MEDS: MUCINEX 600 MG PO (08:40)
--- NOTE | 2024-02-09 09:10 | CM ---
Reviewed the chart notes. Patient's spouse will provide transportation at discharge. CM continues to be available to patient/family and is monitoring medical plan for needs at discharge.
Plan: Discharge to home when medically stable. No anticipated needs.
--- NOTE | 2024-02-09 10:46 | W.PN.GS2 ---
Today's Communication / Plan
-
Dispo planning
Assessment / Plan
-
33 yo female presenting with acute calculous cholecystitis now POD #1 lap jaimee
AFVSS
Await labs this am
Following expected post operative course
--Continue regular diet
--Analgesics prn
--OOB/Ambulate
--Tentative d/c today if LFT's stable
Subjective Data
-
Date of Service: February 09, 2024
Patient seen and examined at bedside with Dr. Ayala. Some post op incisional pain but well managed. Denies nausea. Slept quite well.
Objective Data
-
Intake and Output
02/08/24 02/09/24 02/10/24
06:59 06:59 06:59
Intake Total 2880 / 2880 1030 / 1030
Balance 2880 / 2880 1030 / 1030
Intake:
Oral fluids 1620 / 1620
IV fluids (Total) 1260 / 1260 100 / 100
Normosal 300 / 300
IV piggybacks 930 / 930
Other:
Number of approximated SMALL 1
amounts of urine
Number of approximated MODERATE 2
amounts of urine
Number of approximated LARGE 3
amounts of urine
Number of immeasurable emeses? 2
Vital Signs
Temp Pulse Resp BP Pulse Ox
97.9 F 81 18 118/73 96
02/09/24 07:00 02/09/24 07:00 02/09/24 07:00 02/09/24 07:00 02/09/24 07:00
Lab Results
02/07/24 11:11
Calcium 9.9 mg/dl (8.4-10.2) 02/07/24 11:11
Total Bilirubin 0.2 mg/dl (0.2-1.3) 02/07/24 11:11
AST 19 U/L (14-36) 02/07/24 11:11
ALT 21 U/L (0-35) 02/07/24 11:11
Alkaline Phosphatase 79 U/L (38-126) 02/07/24 11:11
Total Protein 7.7 g/dl (6.3-8.2) 02/07/24 11:11
Albumin 4.8 g/dl (3.5-5.0) 02/07/24 11:11
Physical Exam
-
NAD
ABD soft, minimal incisional tenderness
Incisions well approximated with intact glue
[2024-02-09 10:47] LABS: ALT (SGPT) 20 U/L (0-35); AST (SGOT) 21 U/L (14-36); Albumin 3.9 g/dl (3.5-5.0); Alkaline Phosphatase 58 U/L (38-126); Blood Urea Nitrogen 3 mg/dl (7-17); Calcium 8.8 mg/dl (8.4-10.2); Carbon Dioxide 21 mmol/L (22-30); Chloride 105 mmol/L (98-107); Estimated Creatinine Clearance > 125 ml/min; Glucose 111 mg/dl (70-99); Potassium 4.1 mmol/L (3.5-5.1); Sodium 139 mmol/L (135-145); Total Bilirubin 0.4 mg/dl (0.2-1.3); Total Protein 6.5 g/dl (6.3-8.2); eGFR > 60.00
[2024-02-09 11:00] VITALS: BP 112/76
--- NOTE | 2024-02-09 14:27 | W.DS.TRANS ---
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
-
Discharge Instructions:
Discharge Diagnosis/Procedures Acute cholecystitis with laparoscopic
cholecystectomy
Diet As tolerated
Activity No strenuous activity
Bathing Restrictions OK to Shower
Instructions:
Stand-Alone Forms:
Changes to Home Medications: No
Discharge Medications:
DC Medications w/original date entered in [facility]
diclofenac sodium 75 mg tablet,delayed release 75 mg PO BID #10 tabs 01/26/24
docusate sodium 100 mg capsule 100 mg PO DAILY 02/07/24
guaifenesin 600 mg tablet, extended release 12 hr (Mucinex) 600 mg PO BIDPRN PRN congestion 02/07/24
acetaminophen 325 mg tablet 650 mg (2 x 325 mg) PO Q4HPRN PRN mild pain #1 tab 02/08/24
oxycodone 5 mg tablet 5 mg PO Q4HPRN PRN breakthrough/severe pain #8 tabs 02/08/24
Home Medication Changes
Pending Results: No
== END 2024-02-09 13:57 | disposition home or self-care (01) ==
LOC: SDS 19:09
PROVIDERS: Emergency Medicine; Registered Nurse; ATTENDING PHYSICIAN Surgery; EMERGENCY PHYSICIAN Emergency Medicine; FAMILY PHYSICIAN Nurse Practitioner Family
DX: K80.00 Calculus of gallbladder with acute cholecystitis without obstruction (principal)
CPT/HCPCS: 47562; 88304; 76700; 80053; 81003; 81015; 83690; 84703; 85025; 93005; 96361; 96365; 96375; 99285; A4300